=== PATIENT | male | born 1965 | race Caucasian/White ===

== ENCOUNTER 2016-10-10 10:34 | Emergency (ER) | payer OTHER ==
[2016-10-10 10:46] VITALS: BP 144/90; RESP 18; TEMP 98.1
--- NOTE | 2016-10-10 11:39 | C.PDOC ---
History Of Present Illness Pt c/o atraumatic right lower back pain. Time Seen by Provider: 10/10/16 11:02 Chief Complaint (Nursing): Back Pain History Per: Patient Onset/Duration Of Symptoms: Days (10) Current Symptoms Are (Timing): Still Present Quality Of Discomfort: "Pain" Severity: Moderate Previous Symptoms: Back Pain Associated Symptoms: None Exacerbating Factor(s): Movement Additional History Per: Prior Records Past Medical History Reviewed: Historical Data, Nursing Documentation, Vital Signs Vital Signs: Last Vital Signs Temp 98.1 F 10/10/16 10:41 Pulse 104 H 10/10/16 10:41 Resp 18 10/10/16 10:41 BP 144/90 10/10/16 10:41 Pulse Ox 98 10/10/16 10:41 - Medical History PMH: Arthritis, Hyperlipidemia Surgical History: No Surg Hx Family History: States: Unknown Family Hx - Social History Hx Alcohol Use: No Hx Substance Use: No - Immunization History Hx Tetanus Toxoid Vaccination: No Hx Influenza Vaccination: No Hx Pneumococcal Vaccination: No Review Of Systems Except As Marked, All Systems Reviewed And Found Negative. Constitutional: Negative for: Fever, Weakness Cardiovascular: Negative for: Chest Pain Respiratory: Negative for: Shortness of Breath Gastrointestinal: Negative for: Vomiting Genitourinary: Negative for: Dysuria, Incontinence, Hematuria Musculoskeletal: Positive for: Back Pain. Negative for: Neck Pain, Leg Pain Skin: Negative for: Rash Neurological: Negative for: Weakness, Numbness Physical Exam - Physical Exam Appears: Non-toxic, No Acute Distress Skin: Normal Color, Warm, Dry, No Rash Head: Atraumatic, Normacephalic Eye(s): bilateral: Normal Inspection, PERRL, EOMI Neck: Normal ROM, Supple Cardiovascular: Rhythm Regular Respiratory: Normal Breath Sounds, No Accessory Muscle Use Gastrointestinal/Abdominal: Soft, No Tenderness Back: No CVA Tenderness, No Vertebral Tenderness, Paraspinal Tenderness (right lower) Extremity: Normal ROM, No Pedal Edema, No Calf Tenderness Neurological/Psych: Oriented x3, Normal Motor, Normal Sensation ED Course And Treatment O2 Sat by Pulse Oximetry: 98 Pulse Ox Interpretation: Normal Reassessment Condition: Improved Disposition Counseled Patient/Family Regarding: Diagnosis, Need For Followup, Rx Given - Disposition Referrals: Rufus Velez MD [Medical Doctor] - Disposition: HOME/ ROUTINE Disposition Time: 11:39 Condition: STABLE Additional Instructions: Follow up with your doctor for further evaluation and treatment, including MRI if symptoms persist. Return to the ER if you develop weakness, numbness, trouble urinating, worsening of symptoms or if you have any other concerns. Prescriptions: Cyclobenzaprine [Cyclobenzaprine HCl] 10 mg PO TID PRN #15 tab PRN Reason: Muscle Spasm Instructions: Acute Low Back Pain (ED) Print Language: SINHALA - Clinical Impression Clinical Impression: Low back pain
[2016-10-10 11:54] VITALS: PULSE 100; O2SAT 100
== END 2016-10-10 11:54 | disposition home or self-care (01) ==
LOC: C.ER 10:34
DX: M54.5 Low back pain (principal)